=== PATIENT | male | born 1990 | race Two or more races ===

== ENCOUNTER 2017-09-17 18:39 | Emergency (ER) | payer BC ==
[~2017-09-17] VITALS: Ht 167.6 cm; Wt 85.7 kg
[2017-09-17 21:59] VITALS: BP 137/92
== END 2017-09-17 22:33 | disposition home or self-care (01) ==
LOC: ER 18:39
DX: S13.4XXA Sprain of ligaments of cervical spine, initial encounter (principal); M62.838 Other muscle spasm; R51 Headache; V43.52XA Car driver injured in collision with other type car in traffic accident, initial encounter; Y93.89 Activity, other specified; Y99.8 Other external cause status; Y92.410 Unspecified street and highway as the place of occurrence of the external cause
CPT/HCPCS: 72040; 73030